=== PATIENT | male | born 1980 | race Caucasian/White ===

== ENCOUNTER → 2016-06-29 20:40 | Emergency (ER) | payer OTHER ==
--- NOTE | ~2016-06-29 | CT4 ---
[facility] A Service of [facility] RADIOLOGY TEXT RESULTS PATIENT: MILAGROS CROWE LOCATION: [facility] : [birth year] UNIT #: [id number] AGE: [address]: Abdulaziz White MD SEX: M ORDER DR: [id number] [facility] [address] [place], [place] [address] [id number] E MR#: [id number] Acc #: [id number] NAME: MILAGROS CROWE : 1980 SEX: M STUDY DATE/TIME: 06/29/2016 19:42 UNIT: [facility]IPOL[facility] ROOM: STUDY DESCRIPTION: CT Abd and Pelv Wo Cont Attending Physician: Abdulaziz White M.D. Ordering Physician: Abdulaziz White M.D. Primary Care Physician: Scar Yusuf M.D. MEDICAL IMAGING REPORT This report is preliminary unless electronic signature is present EXAM CT abdomen and pelvis without contrast 06/29/2016 HISTORY Right-sided flank pain beginning 2 and 1/2 hours ago. TECHNIQUE Axial images performed through the abdomen and pelvis without contrast. Multiplanar reconstructed images reviewed at a workstation. This CT exam was performed with one or more of the following radiation dose reduction techniques: automatic exposure control, adjustment of mA and/or kV according to patient size, and iterative reconstruction. FINDINGS CT ABDOMEN: Lung bases unremarkable. The solid organs appear normal. No free air or free fluid. Visualized GI tract appears normal. Retroperitoneum unremarkable. No evidence of renal stone or obstruction. CT PELVIS: Bladder and prostate appear normal. The osseous structures and soft tissues appear normal. IMPRESSION No acute intraabdominal or intrapelvic pathology identified. In particular no evidence of renal stone or obstruction. Dictated by... Dante Islas M.D. THIS IS AN ELECTRONICALLY VERIFIED REPORT Dante Islas M.D. at 06/30/2016 5:11 PM Jourdan [facility] A Service of [facility] RADIOLOGY TEXT RESULTS PATIENT: MILAGROS CROWE LOCATION: [facility] : 84 UNIT #: [id number] AGE: [address]: Abdulaziz White MD SEX: M ORDER DR: TD: 06/30/2016 08:51 JOB #: [id number] MEDICAL IMAGING REPORT COPY
[2016-06-29 19:16] LABS: URINE SOURCE CLEAN CATCH
[2016-06-29 19:34] LABS: URINE APPEARANCE CLEAR; URINE BILIRUBIN NEG (NEG); URINE BLOOD NEG (NEG); URINE COLOR YELLOW; URINE GLUCOSE NEG (NEG); URINE KETONE NEG (NEG); URINE LEUKOCYTE ESTERASE NEG (NEG); URINE NITRATE NEG (NEG); URINE PROTEIN NEG (NEG); URINE SPECIFIC GRAVITY 1.037 (1.003-1.035); URINE UROBILINOGEN 0.2 MG/DL (NEG)
[2016-06-29 19:40] LABS: CULTURE INDICATED? NO
[2016-06-29 19:43] LABS: BASOPHIL% 0.3 % (0-2.5); EOSINOPHIL# 0.1 X10e3 (0-0.7); EOSINOPHIL% 1.3 % (0.0-7.0); HEMATOCRIT 43.7 % (38.0-50.0); HEMOGLOBIN 14.5 gm/dL (13.0-16.0); LYMPHOCYTE# 1.3 X10e3 (1.0-3.5); LYMPHOCYTE% 31.8 % (17.0-45.0); MEAN CELL VOLUME 95.5 FL (83-96); MEAN CORPUSCULAR HEMOGLOBIN 31.7 PG (28-34); MEAN CORPUSCULAR HGB CONC 33.2 g/dL (30-36); MEAN PLATELET VOLUME 6.5 FL (6.5-11.5); MONOCYTE# 0.2 X10e3 (0-1.0); MONOCYTE% 5.9 % (3.0-12.0); NEUTROPHIL# 2.4 X10e3 (1.5-7.1); NEUTROPHIL% 60.7 % (40-75); PLATELET COUNT 226 X10e3 (140-420); RED BLOOD COUNT 4.58 X10e (3.90-5.60); RED CELL DISTRIBUTION WIDTH 13.3 % (11.0-15.5); WHITE BLOOD COUNT 3.9 X10e3 (4.0-10.5)
[2016-06-29 19:55] LABS: DIFF IND NO
[2016-06-29 20:04] LABS: BLOOD UREA NITROGEN 16 mg/dL (9-23); BUN/CREATININE RATIO 17.77; CALCIUM SERUM 9.6 mg/dL (8.4-10.2); CARBON DIOXIDE 27 mmol/L (22-31); CHLORIDE 102 mmol/L (100-111); CREATININE SERUM 0.9 mg/dL (0.6-1.4); GLOM FILT RATE Estimated ABOVE60 mL/min (>60); GLUCOSE FASTING 85 mg/dL (70-110); POTASSIUM 3.7 mmol/L (3.5-5.1); SODIUM 137 mmol/L (135-145)
[2016-06-29 20:13] LABS: ALBUMIN SERUM 4.1 g/dL (3.5-5.0); BILIRUBIN, DIRECT 0.1 mg/dL (0.0-0.2); BILIRUBIN,INDIRECT 0.5 mg/dL (0.0-0.9); BILIRUBIN,TOTAL 0.6 mg/dL (0.2-2.0); PROTEIN TOTAL SERUM 7.3 g/dL (6.0-8.3)
== END | disposition home or self-care (01) ==
LOC: CED 20:40
PROVIDERS: Emergency Medicine
DX: R10.9 Unspecified abdominal pain (principal); J45.909 Unspecified asthma, uncomplicated; F17.200 Nicotine dependence, unspecified, uncomplicated
CPT/HCPCS: 36415; 74176; 80048; 80076; 81003; 83690; 85025; 96361; 96374; 96375; 99284; J1885; J2405

== ENCOUNTER 2016-09-07 17:55 | Emergency (ER) | payer OTHER | END 2016-09-07 19:20 | disposition left against medical advice (07) | LOC: CED 17:55 | DX: Z53.21 Procedure and treatment not carried out due to patient leaving prior to being seen by health care provider (principal) ==

== ENCOUNTER 2016-09-27 17:29 | Emergency (ER) | payer OTHER ==
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
== END 2016-09-27 18:34 | disposition home or self-care (01) ==
LOC: CFTX 17:29 → CED 17:29 → CFTX 17:53
DX: M54.12 Radiculopathy, cervical region (principal); J45.909 Unspecified asthma, uncomplicated; F17.210 Nicotine dependence, cigarettes, uncomplicated
CPT/HCPCS: 72125; 96372; 99283; J1885